=== PATIENT | female | born 1965 | race Caucasian/White ===

== ENCOUNTER 2021-03-23 07:00 | Inpatient (IN) | payer OTHER, SELFPAY ==
[2021-03-23] VITALS (10 sets, daily range): BP systolic 119–159; BP diastolic 58–93; PULSE 69–90; RESP 16–19; TEMP 36.1–37.2; O2SAT 96–100; BMI 30.1
--- NOTE | ~2021-03-23 | XR_ITS ---
EXAMINATION: XR KNEE, RIGHT CLINICAL INFORMATION: Fall, trauma COMPARISON: None TECHNIQUE: AP and crosstable lateral projections of the right knee. FINDINGS: There is a transverse fracture through the mid pole patella with distraction of the fracture fragments by approximately 3 cm. There is comminution of the lower pole fragment with vertically oriented fracture seen on the AP view and probable hairline comminution of the proximal fragment. There is spurring at the quadriceps insertion patella. The distal femur and proximal tibia are intact. There is chondrocalcinosis involving the lateral meniscus. No erosive change. XR/XR knee RT 2V IMPRESSION: Comminuted mid pole patellar fracture with distraction fracture fragments by approximately 3 cm.
--- NOTE | ~2021-03-23 | FL_ITS ---
EXAMINATION: XR FLUOROSCOPY WITH IMAGES CLINICAL INFORMATION: Patellar fracture. COMPARISON: Radiographs of the knee from 03/23/2021 at 8:07 AM TECHNIQUE: Fluoroscopy performed by Dr. House. Fluoroscopy time: 0.6 minutes DAP: 0.0609 mGycm2 Images: 2 FL/FL guidance in OR FINDINGS AND IMPRESSION: The AP and lateral views of the right knee were obtained after open reduction and internal fixation of the patella fracture. The upper and lower poles the patella are reapproximated by the partially threaded cannulated screws and figure of eight tension band wire. The patellar fragments are in anatomic position. Bones have normal alignment at the knee.
--- NOTE | 2021-03-23 07:25 | ED.FALL ---
HPI - Fall General Chief Complaint: Fall Stated Complaint: knee pain - work injury Time Seen by Provider: 03/23/21 07:25 Source: patient Mode of arrival: ambulatory Limitations: no limitations History of Present Illness HPI Narrative: 55-year-old female walked in for evaluation for work-related injury happened this morning. 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 Patient only complained of right knee pain. Patient confirm there was no dizziness or lightheadedness or loss of consciousness before or after the incident. Related Data Allergies Allergy/AdvReac Type Severity Reaction Status Date / Time No Known Allergies Allergy Verified 03/23/21 09:43 Review of Systems Review of Systems: All other systems are reviewed and are negative Constitutional: Reports as per HPI and Reports no additional constitutional complaints Eyes: Reports as per HPI and Reports no additional eye complaints Reports system reviewed and no additional complaints, except as documented Cardiovascular: Reports as per HPI and Reports no additional cardiovascular complaints Respiratory: Reports as per HPI and Reports no additional respiratory complaints Gastrointestinal: Reports as per HPI and Reports no additional gastrointestinal complaints Genitourinary: Reports no additional female genitourinary complaints Musculoskeletal: Reports no additional musculoskeletal complaints Skin/Breast: Reports system reviewed and no additional complaints, except as docu Psychiatric: Reports no additional psychiatric complaints Endocrine: Reports no additional endocrine complaints Hematologic/Lymphatic: Reports no additional hematologic/lymphatic complaints Allergic/Immunologic: Reports no additional allergic/immunologic complaints Reports system reviewed and no additional complaints, except as documented and Reports Abnormal speech present FOR[facility], [facility] Past Medical History Medical History (Updated 03/23/21 @ 07:14 by Mikal Mcguire) HTN (hypertension) Social History Social History Advance Directives: No Advance Directives Information Provided: No Physical Exam Vital Signs: Vital Signs: Last Vital Signs Temp 98 F 03/23/21 07:12 Pulse 69 03/23/21 07:12 Resp 19 03/23/21 07:12 BP 159/81 H 03/23/21 07:12 Pulse Ox 100 03/23/21 07:12 BMI result Body Mass Index 30.1 Vital signs have been reviewed as appeared to be correct. Blood pressure normal. Heart rate normal. Respiration rate normal. Temperature normal. Oxygen saturation normal. Appearance: Alert. Oriented X3. No acute distress. Head: Normal external exam. Normocephalic. Atraumatic. No Szymanski signs noted. No raccoon eyes noted Eyes: PERRLA. EOMI. Conjunctiva and sclera normal. Eyelids normal. ENT: TM's Normal. Pharynx normal. Uvula midline. Moist mucous membranes. No trismus noted. No drooling noted. No muffled voice noted. Neck: Normal inspection. Neck supple. FROM. No adenopathy. Thyroid Normal. No meningeal signs. No neck mass noted. CVS: Normal heart rate and rhythm. Heart sound normal. No murmurs noted. Pulses normal throughout. Respiratory: No respiratory distress. Painless inspiration. Breath sounds normal. No wheezes/rales/rhonchi noted. Chest nontender. No accessory muscle usage noted or decreased air movement noted. Abdomen: Soft and nontender. Bowel sounds normal in all 4 quadrants. No distention noted. No organomegaly noted. No visible injury noted. Back: No CVA tenderness. Full range of motion noted. Skin: Skin warm and dry. Normal skin color. Normal skin turgor. No rashes/lesions/lacerations noted. Extremities: Superficial abrasion to the right knee, patellar deformity and step-off., limited range of motion, unable to bear weight on the right knee or straightening the right lower extremity. Neuro: Oriented X 3. Cranial nerve exam: II-XII are grossly intact No motor deficit. No sensory deficit. Reflexes normal. Course Course Course Narrative: Assessment and plan. 55-year-old female with mechanical fall at work causing a right patellar comminuted fracture. The case discussed with orthopedic who will take the patient for surgical internal fixation. MDM - Fall Imaging Data Right knee x-ray: Attestation: I personally reviewed and interpreted this imaging study as follows: Radiologist's impression: Comminuted mid pole patellar fracture with distraction fracture fragments by approximately 3 cm.
--- NOTE | 2021-03-23 10:29 | PHA.MEDREC ---
Pharmacy Consult ? Medication Reconciliation Pharmacy has completed the medication reconciliation. Nataly Steele RPh
--- NOTE | 2021-03-23 11:17 | PC.NURSE ---
declined pain meds, states she has good pain control w immobilization, last oral intake was 0500 1 coffee w cream, or aware, pt aware npo
[2021-03-23] MEDS: Dextrose 5 % and 0.45 % NaCl 1,000 ML 80 ML IVCONT ×2 (11:34→20:39)
[2021-03-23 12:14] LABS: Glucose, Whole Blood 115 mg/dL (60-115)
--- NOTE | 2021-03-23 12:14 | PC.NURSE ---
patient reported feeling dizzy as if she was gonna pass out . obtained vitals and blood glucose . Blood glucose level 115 . Vitals bp 99/54
[2021-03-23 12:40] LABS: COVID-19 Test Negative (Negative)
--- NOTE | 2021-03-23 13:59 | PM.CNOR ---
History of Present Illness HPI Consult date: 03/23/21 <Lisa Tripp PA-C - Last Filed: 03/23/21 14:03> Chief complaint: right patella fx <Lisa Tripp PA-C - Last Filed: 03/23/21 14:03> Narrative: Patient presents the emergency department this morning after sustaining a slip and fall on black ice while at work. 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 She sustained some superficial skin abrasions. She had difficulty with ambulation and pain therefore she was brought to the emergency department. X-rays obtained revealed a right patellar fracture. Orthopedics was then consulted for further evaluation and treatment. She was admitted to the hospital with the orthopedic service. <Lisa Tripp PA-C - Last Filed: 03/23/21 14:03> Review of Systems Review of Systems: Yes all other systems are reviewed and are negative <Lisa Tripp PA-C - Last Filed: 03/23/21 14:03> [facility] Past Medical History Medical History: Medical History (Updated 03/23/21 @ 09:48 by Crissy Jordan) HTN (hypertension) <Lisa Tripp PA-C - Last Filed: 03/23/21 14:03> Social History Social History: Social History Patient Tobacco Use Status: Former Tobacco user Use of substances other than those prescribed or required for medical reasons: No Have you been hit, kicked, punched, or otherwise hurt by someone within the past year? If so, by whom?: No Are you DNR?: No Advance Directives: No Advance Directives Information Provided: No Recently lost weight without trying: No Nutrition Risks: No Nutritional Risk <ROBBY West Last Filed: 03/23/21 14:03> Meds Allergies/Adverse reactions: Allergies Allergy/AdvReac Type Severity Reaction Status Date / Time No Known Allergies Allergy Verified 03/23/21 09:43 <Lisa Tripp PA-C - Last Filed: 03/23/21 14:03> Active Medications: Current Medications Acetaminophen (Acetaminophen 325 Mg Tablet) 650 mg PO Q6H PRN PRN Reason: Pain, Mild (Pain Scale 1-3) Celecoxib (Celecoxib 200 Mg Capsule) 200 mg PO BID [facility] Docusate Sodium (Docusate Sodium 100 Mg Capsule) 100 mg PO BID [facility] Hydromorphone HCl (Hydromorphone Hcl 0.5 Mg/0.5 Ml Syringe) 0.25 mg IVPUSH Q4H PRN; Protocol PRN Reason: Pain, Severe (Pain Scale 7-10) Dextrose/Sodium Chloride (D51/2ns) 1,000 mls @ 80 mls/hr IVCONT .[id number] [facility] Last Admin: 03/23/21 11:34 Dose: 80 mls/hr Documented by: Ondansetron HCl (Ondansetron Hcl 4 Mg/2 Ml Vial) 4 mg IVPUSH Q8H PRN PRN Reason: Nausea and Vomiting Oxycodone HCl (Oxycodone Hcl Immed Release 5 Mg Tablet) 5 mg PO Q4H PRN PRN Reason: Pain, Moderate (Pain Scale 4-6 Oxycodone HCl (Oxycodone Hcl Er 10 Mg Tab.Er.12h) 10 mg PO BID [facility] Sodium Chloride (0.9 % Sodium Chloride Flush 3 Ml Syringe) 3 ml IVFLUSH QSHIFT [facility] <Lisa Tripp PA-C - Last Filed: 03/23/21 14:03> Home medications: Home Medications Medication Instructions Recorded Confirmed Last Taken Type lisinopril 10 mg tablet 1 tab PO DAILY 03/23/21 03/23/21 03/22/21 History <Lisa Tripp PA-C - Last Filed: 03/23/21 14:03> Physical Exam Vital Signs: Vital Signs: Last Vital Signs Temp 98 F 03/23/21 12:47 Pulse 79 03/23/21 12:47 Resp 18 03/23/21 12:47 BP 141/93 H 03/23/21 12:47 Pulse Ox 98 03/23/21 12:47 BMI result Body Mass Index 30.1 <Lisa Tripp PA-C - Last Filed: 03/23/21 14:03> Const: General: cooperative, healthy appearing and no acute distress <Lisa Tripp PA-C - Last Filed: 03/23/21 14:03> Resp: Effort & Inspection: normal respiratory effort and able to speak in complete sentences <Lisa Tripp PA-C - Last Filed: 03/23/21 14:03> Cardio: Rate: regular rate <Lisa Tripp PA-C - Last Filed: 03/23/21 14:03> Peripheral pulses: Peripheral pulses 2+ throughout <Lisa Tripp PA-C - Last Filed: 03/23/21 14:03> GI: Palpation (GI): Soft to palpation <Lisa Tripp PA-C - Last Filed: 03/23/21 14:03> Skin: Lesions: no lesions <Lisa Tripp PA-C - Last Filed: 03/23/21 14:03> Rashes: no rashes <Lisa Tripp PA-C - Last Filed: 03/23/21 14:03> Extrem: Other: Right knee superficial skin abrasions. Palpable defect over the patella. Patient unable to demonstrate straight leg raise. Sensation intact. Pedal pulse intact. <Lisa TroncosoburtROBBY - Last Filed: 03/23/21 14:03> Results Labs Labs: All other labs normal. <Lisa TroncosoburtROBBY - Last Filed: 03/23/21 14:03> Assessment and Plan (1) Patellar fracture: Status: Acute <Lisa Hallbisi ROBBY - Last Filed: 03/23/21 14:03> I discussed the case with Dr. House and explained the extent of the injury to the patient and options available which include surgical intervention. I explained the procedure in detail along with the length of recovery and rehab course. I explained the risk, benefits and alternatives. Risk including, but not limited to infection, blood clots, bleeding, non union or malunion and nerve/tissue damage to surrounding areas. I answered all their questions and with their understanding they have consented to move forward with Operative Fixation of the right patella. Patient will remain NPO and is scheduled for surgical procedure later today. <Lisa Tripp PA-C - Last Filed: 03/23/21 14:03> Procedures Date of Service Date of Service: 03/23/21 <Lisa Tripp PA-C - Last Filed: 03/23/21 14:03>
--- NOTE | 2021-03-23 14:46 | MHC.SHP ---
Pre-Procedural Eval Section A Date of Service: 03/23/21 The patient is an INPATIENT: Yes Changes since office visit: Yes Patient answered all questions; No Cold of Flu in the past 2 weeks, No New Medical Problems and No Changes in Medication The History & Physical has been completed within 30 days and I have reviewed it.: Yes Section B Chief Complaint: right patella fx Allergies: Allergies Allergy/AdvReac Type Severity Reaction Status Date / Time No Known Allergies Allergy Verified 03/23/21 09:43 Plan I have reviewed the history and physical and performed a pertinent physical examination on my patient. No changes have occurred unless specified.
--- NOTE | 2021-03-23 15:07 | HO.ANESPROP2 ---
[facility] Active Problems Active Problems: All Active Problems (Updated 03/23/21 @ 09:48 by Crissy Jordan) Patellar fracture (Acute) Past Medical History Medical History HTN (hypertension) Family History Family history of problems with anesthesia: No Surgical History History of Problems with Anesthesia: No Social History Social History Patient Tobacco Use Status: Former Tobacco user Meds Allergies Allergy/AdvReac Type Severity Reaction Status Date / Time No Known Allergies Allergy Verified 03/23/21 09:43 Active Medications: Current Medications Acetaminophen (Acetaminophen 325 Mg Tablet) 650 mg PO Q6H PRN PRN Reason: Pain, Mild (Pain Scale 1-3) Celecoxib (Celecoxib 200 Mg Capsule) 200 mg PO BID [facility] Docusate Sodium (Docusate Sodium 100 Mg Capsule) 100 mg PO BID [facility] Hydromorphone HCl (Hydromorphone Hcl 0.5 Mg/0.5 Ml Syringe) 0.25 mg IVPUSH Q4H PRN; Protocol PRN Reason: Pain, Severe (Pain Scale 7-10) Dextrose/Sodium Chloride (D51/2ns) 1,000 mls @ 80 mls/hr IVCONT .[id number] [facility] Last Admin: 03/23/21 11:34 Dose: 80 mls/hr Documented by: Ondansetron HCl (Ondansetron Hcl 4 Mg/2 Ml Vial) 4 mg IVPUSH Q8H PRN PRN Reason: Nausea and Vomiting Oxycodone HCl (Oxycodone Hcl Immed Release 5 Mg Tablet) 5 mg PO Q4H PRN PRN Reason: Pain, Moderate (Pain Scale 4-6 Oxycodone HCl (Oxycodone Hcl Er 10 Mg Tab.Er.12h) 10 mg PO BID [facility] Sodium Chloride (0.9 % Sodium Chloride Flush 3 Ml Syringe) 3 ml IVFLUSH QSHIFT [facility] Home Medications Medication Instructions Recorded Confirmed Last Taken Type lisinopril 10 mg tablet 1 tab PO DAILY 03/23/21 03/23/21 03/22/21 History Exam Exam Date and Time: March 23, 2021 1507 Height,Weight and Vital Signs: Height 5 ft 10 in Weight 210 lb Last Vital Signs Temp 98 F 03/23/21 12:47 Pulse 79 03/23/21 12:47 Resp 18 03/23/21 12:47 BP 141/93 H 03/23/21 12:47 Pulse Ox 98 03/23/21 12:47 Pertinent Lab Results Pertinent Lab Results: Laboratory Tests 03/23/21 03/23/21 03/23/21 10:46 12:09 12:18 POC Glucose 115 COVID-19 ([facility]) Negative COVID-19 Clin Com See Note Blood Type A Positive Antibody Screen NEGATIVE Airway Mallampati Class: II TM Dist: >3cm Loose/Missing/Broken Teeth: Yes Heart: RBBB Assessment and Plan Assessment Anesthesia Assessment: Anesthesia Plan Discussed and Chart Reviewed Final Anesthetic Review Family History of Problems with Anesthesia: No History of Problems with Anesthesia: No NPO: Yes ASA Class: II Final Preanesthetic Review: No Changes in Pt Med Stat, Meds/Allgs Chart Reviewed, Consent Obtained/Reviewed and Anes Risks/Benef Reviewed Patient Risk: Low Procedure Risk: Low Anesthetic Plan Anesthetic Plan: GA and Regional Block Disposition: Standard PACU
--- NOTE | 2021-03-23 15:58 | P.BOP_ITS ---
Brief Operative Note Date of Service: 03/23/21 Pre-op diagnosis: right patella fracture Post-op diagnosis: same Procedure: ORIF right patella fracture Implants: Farnsworth 4.0 partially threaded cannulated screws x 2 and 18 g cerclage wire Surgeon: Anthony House MD Anesthesia: GETA and regional Was an Electron Beam Operator used for this Procedure?: Yes Electron Beam Operator: Lisa Tripp Estimated blood loss (mL): 100 Tourniquet time (min): 49 IV fluids (mL): 900 Pathology: none sent Condition: stable Disposition: PACU
--- NOTE | 2021-03-23 16:01 | W.PM.OPN ---
Operative Note Operative Note Date of Service: 03/23/21 Narrative: Date of Service: 03/23/21 Pre-op diagnosis: right patella fracture Post-op diagnosis: same Procedure: ORIF right patella fracture Implants: Bahman 4.0 partially threaded cannulated screws x 2 and 18 g cerclage wire Surgeon: Anthony House MD Anesthesia: GETA and regional Was an Oversize Load Pilot Escort used for this Procedure?: Yes Oversize Load Pilot Escort: Lisa Tripp Estimated blood loss (mL): 100 Tourniquet time (min): 49 IV fluids (mL): 900 Pathology: none sent Condition: stable Disposition: PACU
--- NOTE | 2021-03-23 16:34 | P.CONIM_ITS ---
History of Present Illness Data of Consult Service Date: 03/23/21 Requesting physician: Lisa Tripp Primary Care Provider: MD RORO Rodrigues Reason for consult: routine medical management This is a 55 year old female who presented to the emergency department after a fall. She reports that she slipped on ice falling onto her right knee. she had sudden onset of pain in her right knee. She was brought to the emergency department for evaluation and her workup was significant for a right patellar fracture chest x-ray showed comminuted mid pole patellar fracture with distraction fracture fragments by approximately 3 cm. She was admitted to the orthopedic service and underwent repair earlier today. She was evaluated in the PACU. She was somewhat groggy but able to answer all questions appropriately. Review of Systems Verdana 4l Review of Systems: Yes all other systems are reviewed and Verdana 4d are negative Verdana 4l Constitutional: Verdana 4d Constitutional: Verdana 4d Verdana 4d Denies chills and Denies fever(s) Verdana 4l Cardiovascular: Verdana 4d Cardiovascular: Verdana 4d Verdana 4d Denies chest pain Verdana 4l Respiratory: Verdana 4d Verdana 4d Respiratory: Verdana 4d Denies cough Verdana 4l Gastrointestinal: Verdana 4d Gastrointestinal: Verdana 4d Verdana 4d Denies abdominal pain [facility] Medical History HTN (hypertension) Functional capacity: independent ambulation Family History (Updated 03/23/21 @ 16:38 by VENESSA Minor) Mother Diabetes Social History (Updated 03/23/21 @ 16:38 by VENESSA Minor) Alcohol intake: never Patient Tobacco Use Status: Former Tobacco user Use of substances other than those prescribed or required for medical reasons: No Meds Allergies Allergy/AdvReac Type Severity Reaction Status Date / Time No Known Allergies Allergy Verified 03/23/21 09:43 Active Medications: Current Medications Acetaminophen (Acetaminophen 325 Mg Tablet) 650 mg PO Q6H PRN PRN Reason: Pain, Mild (Pain Scale 1-3) Celecoxib (Celecoxib 200 Mg Capsule) 200 mg PO BID [facility] Docusate Sodium (Docusate Sodium 100 Mg Capsule) 100 mg PO BID [facility] Hydromorphone HCl (Hydromorphone Hcl 0.5 Mg/0.5 Ml Syringe) 0.25 mg IVPUSH Q4H PRN; Protocol PRN Reason: Pain, Severe (Pain Scale 7-10) Hydromorphone HCl (Hydromorphone Hcl 0.5 Mg/0.5 Ml Syringe) 0.25 mg IVPUSH Q5M PRN; Protocol PRN Reason: Pain, Severe (Pain Scale 7-10) Dextrose/Sodium Chloride (D51/2ns) 1,000 mls @ 80 mls/hr IVCONT .[id number] [facility] Last Admin: 03/23/21 11:34 Dose: 80 mls/hr Documented by: Promethazine HCl 12.5 mg/ (Sodium Chloride) 50.5 mls @ 202 mls/hr IV ONCE PRN PRN Reason: Nausea and Vomiting Ondansetron HCl (Ondansetron Hcl 4 Mg/2 Ml Vial) 4 mg IVPUSH Q8H PRN PRN Reason: Nausea and Vomiting Ondansetron HCl (Ondansetron Hcl 4 Mg/2 Ml Vial) 4 mg IVPUSH ONCE PRN PRN Reason: Nausea and Vomiting Oxycodone HCl (Oxycodone Hcl Immed Release 5 Mg Tablet) 5 mg PO Q4H PRN PRN Reason: Pain, Moderate (Pain Scale 4-6 Oxycodone HCl (Oxycodone Hcl Er 10 Mg Tab.Er.12h) 10 mg PO BID [facility] Oxycodone HCl (Oxycodone Hcl Immed Release 5 Mg Tablet) 5 mg PO ONCE PRN PRN Reason: Pain, Severe (Pain Scale 7-10) Sodium Chloride (0.9 % Sodium Chloride Flush 3 Ml Syringe) 3 ml IVFLUSH QSHIFT [facility] Home Medications Medication Instructions Recorded Confirmed Last Taken Type lisinopril 10 mg 1 tab PO DAILY 03/23/21 03/23/21 03/22/21 History tablet Physical Exam Verdana 4l Vital Signs and Narrative: Verdana 4d Verdana 4d Vital Signs: Verdana 4d Verdana 4Bd Last Vital Signs Verdana 4d Director Acute New 4d Director Acute New 4d Temp 99.0 F 03/23/21 16:25 Katie New 4d Pulse 84 03/23/21 16:25 Katie MosquedaNew 4d Resp 16 03/23/21 16:25 BP 119/58 L 03/23/21 16:25 Pulse Ox 98 03/23/21 16:25 BMI result Body Mass Index 30.1 Const: General: cooperative and comfortable Nutritional Appearance: overweight Orientation/consciousness: patient oriented x3 HENMT: Head: Yes normocephalic and Yes atraumatic Eyes: Sclerae: sclerae normal Resp: Effort & Inspection: normal respiratory effort and no respiratory distress Cardio: Rate: regular rate Rhythm: regular rhythm GI: Palpation (GI): Soft to palpation and nontender Neuro: General: patient oriented x3 Cranial nerves: Yes CN's II-XII intact bilaterally and Yes Bilaterally intact EOM present Extrem: Other: RLE in knee immobilizer Results Labs Labs: Laboratory Results - last 24 hr 03/23/21 03/23/21 03/23/21 10:46 12:09 12:18 POC Glucose 115 COVID-19 ([facility]) Negative COVID-19 Clin Com See Note Blood Type A Positive Antibody Screen NEGATIVE Imaging Radiologist's Impressions: Impressions Knee X-Ray 03/23/21 08:08 IMPRESSION: Comminuted mid pole patellar fracture with distraction fracture fragments by approximately 3 cm. Assessment and Plan (1) Patellar fracture: Status: Acute This is a 55-year-old female with history of hypertension who presents to the emergency department after mechanical fall found to have right patellar fracture admitted to the orthopedic service Right patellar fracture s/p ORIF management per orthopedic service recommend checking baseline labs HTN. BP controlled Continue home dose of lisinopril there are no other acute medical issues at this time. will sign off at this time. please feel free to call us if any acute issues arise. dvt ppx - per primary team attending: dr guido
[2021-03-23] MEDS: ondansetron HCL 4 MG/2 ML VIAL IVPUSH (17:23)
[2021-03-23 17:29] LABS: MANUAL DIFF FLAG NO
[2021-03-23 17:30] LABS: Basophils Percent Auto 0.2 % (0-2); Hemoglobin 12.2 g/dl (12.0-16.0); Imm Gran Abs Auto 0.06 X10*3/uL (0.00-0.03); Imm Gran Pct Auto 0.6 % (0.0-0.4); Lymphocytes Percent Auto 9.3 % (20-40); Mean Corpuscular HGB Conc 33.9 g/dl (31.0-35.0); Mean Corpuscular Hemoglobin 29.3 pg (27.0-33.0); Mean Corpuscular Volume 86.3 fL (80.0-98.0); Mean Platelet Volume 8.6 fL (9.4-12.3); Monocytes Absolute Auto 0.3 X10*3/uL (0.1-1.2); Monocytes Percent Auto 2.5 % (2-11); Neutrophils Absolute Auto 9.5 x10*3/uL (2.0-8.3); Neutrophils Percent Auto 87.4 % (45-73); Platelet Count 287 X10*3/uL (160-400); Red Blood Count 4.17 X10*6/uL (4.20-5.50); Red Cell Distribution Width 12.4 % (11.0-16.0); White Blood Count 10.9 X10*3/uL (4.8-10.8)
[2021-03-23 17:45] LABS: Anion Gap 13 (12-20); Blood Urea Nitrogen 17 mg/dL (9-16); Calcium 9.2 mg/dL (8.4-10.2); Carbon Dioxide 24 mmol/L (22-29); Chloride 105 mmol/L (96-108); Creatinine Clr Calc Pharmacy 99.4; Estimated Glomerular Filt Rate > 60; Glucose Random 178 mg/dL (60-115); Potassium 4.2 mmol/L (3.3-5.1); Sodium 138 mmol/L (135-145)
[2021-03-23] MEDS: Docusate Sodium 100 MG CAPSULE PO (20:26)
[2021-03-23] MEDS: Celecoxib 200 MG CAPSULE PO (20:26)
[2021-03-23] MEDS: oxyCODONE HCl ER 10 MG TAB.ER.12H PO (20:26)
[2021-03-23] MEDS: 0.9 % Sodium Chloride Flush 3 ML SYRINGE IVFLUSH (20:27)
[2021-03-23] MEDS: ceFAZolin Sodium/Dextrose,Iso 2 GM/50 ML PIGGYBACK IV (20:40)
[2021-03-24] VITALS: BP 124/57; PULSE 72; RESP 18; TEMP 36.3; O2SAT 96
[2021-03-24 03:49] VITALS: BP 132/67; PULSE 73; RESP 16; TEMP 36.6; O2SAT 98
[2021-03-24 05:52] LABS: MANUAL DIFF FLAG NO
[2021-03-24 05:57] LABS: Basophils Percent Auto 0.1 % (0-2); Hematocrit 32.4 % (37.0-47.0); Hemoglobin 10.9 g/dl (12.0-16.0); Imm Gran Abs Auto 0.03 X10*3/uL (0.00-0.03); Imm Gran Pct Auto 0.3 % (0.0-0.4); Lymphocytes Absolute Auto 1.4 X10*3/uL (1.2-4.9); Lymphocytes Percent Auto 14.9 % (20-40); Mean Corpuscular HGB Conc 33.6 g/dl (31.0-35.0); Mean Corpuscular Hemoglobin 29.5 pg (27.0-33.0); Mean Corpuscular Volume 87.8 fL (80.0-98.0); Mean Platelet Volume 8.7 fL (9.4-12.3); Monocytes Absolute Auto 0.7 X10*3/uL (0.1-1.2); Monocytes Percent Auto 7.7 % (2-11); Neutrophils Absolute Auto 7.2 x10*3/uL (2.0-8.3); Platelet Count 240 X10*3/uL (160-400); Red Blood Count 3.69 X10*6/uL (4.20-5.50); Red Cell Distribution Width 12.3 % (11.0-16.0); White Blood Count 9.4 X10*3/uL (4.8-10.8)
[2021-03-24 06:22] LABS: Anion Gap 10 (12-20); Blood Urea Nitrogen 17 mg/dL (9-16); Calcium 9.2 mg/dL (8.4-10.2); Carbon Dioxide 26 mmol/L (22-29); Chloride 105 mmol/L (96-108); Creatinine Clr Calc Pharmacy 110.6; Estimated Glomerular Filt Rate > 60; Glucose Fasting 167 mg/dL (60-99); Potassium 4.1 mmol/L (3.3-5.1); Sodium 137 mmol/L (135-145)
[2021-03-24 07:09] VITALS: BP 128/62; PULSE 74; RESP 18; TEMP 36.5; O2SAT 98
[2021-03-24 09:56] VITALS: BP 128/62; PULSE 74
[2021-03-24] MEDS: lisinopriL 10 MG TABLET PO (09:56)
[2021-03-24] MEDS: Docusate Sodium 100 MG CAPSULE PO (09:56)
[2021-03-24] MEDS: Celecoxib 200 MG CAPSULE PO (09:56)
[2021-03-24] MEDS: 0.9 % Sodium Chloride Flush 3 ML SYRINGE IVFLUSH (09:57)
--- NOTE | 2021-03-24 11:53 | MHC.CM.PN ---
PATIENT IS DISCHARGED HOME PRIOR TO CM ASSESSMENT OR SECURING A [facility] SERVICE. REFERRAL PLACED TO [facility] IN HOPES OF SECURING HOME P.T. SERVICES. PATIENT IS NOW AWARE OF ATTEMPTS. CASE MANAGEMENT TO FOLLOW UP WITH NOTE
[2021-03-24 11:55] VITALS: BP 127/68; PULSE 87; RESP 18; TEMP 36.8; O2SAT 99
--- NOTE | 2021-03-24 12:43 | P.DS_ITS ---
DS: Providers Provider Date of Service: 03/24/21 Date of admission: 03/23/21 09:48 Primary care physician: Kasey Bennett MD Consults: 03/23/21 09:47 Consult to Hospitalist Routine Consulting Provider: Hospitalist Reason For Exam: routine medical management DS: Diagnosis Discharge Diagnosis (1) Patellar fracture: Status: Acute DS: Summary Hospital Course Hospital Course: The patient underwent a successful ORIF of the right patella, she was transferred to PACU and then to the floor to recover. During their stay, their vitals were stable, afebrile at 98.2. Labs were unremarkable, H/H 10.9/32.4 . POD 1 she was started on ASA for DVT ppx, she also received PT/OT services twice a da. Prior to discharge, dressing was clean dry and intact, and the plan was to be discharged home with vna svs Time Spent with Patient Time attestation: Total time spent providing and/or coordinating discharge services: Discharge coordination time: Less than 30 minutes Quality: Stroke Does the patient have a stroke diagnosis?: No Physical Exam Vital Signs: Vital Signs: Last Vital Signs Temp 98.2 F 03/24/21 11:55 Pulse 87 03/24/21 11:55 Resp 18 03/24/21 11:55 BP 127/68 03/24/21 11:55 Pulse Ox 99 03/24/21 11:55 BMI result Body Mass Index 30.1 Const: General: cooperative, healthy appearing and no acute distress Resp: Effort & Inspection: normal respiratory effort and able to speak in complete sentences Cardio: Rate: regular rate Peripheral pulses: Peripheral pulses 2+ throughout GI: Palpation (GI): Soft to palpation Skin: General skin exam: no rashes or lesions noted Extrem: Other: incision clean dry and intact. Douglas intact. No erythema or joint effusion. Calf supple nontender. Neurovascularly intact. DS: Data Data Completed and Pending Labs on day of discharge: Laboratory Results - last 24 hr 03/23/21 03/23/21 03/24/21 17:24 17:24 05:39 WBC 10.9 H 9.4 RBC 4.17 L 3.69 L Hgb 12.2 10.9 L Hct 36.0 L 32.4 L MCV 86.3 87.8 MCH 29.3 29.5 MCHC 33.9 33.6 RDW 12.4 12.3 Plt Count 287 240 MPV 8.6 L 8.7 L Immature Gran % (Auto) 0.6 H 0.3 Neut % (Auto) 87.4 H 77.0 H Lymph % (Auto) 9.3 L 14.9 L [place] % (Auto) 2.5 7.7 Eos % (Auto) 0.0 0.0 Baso % (Auto) 0.2 0.1 Lymph # (Auto) 1.0 L 1.4 [place] # (Auto) 0.3 0.7 Eos # (Auto) 0.0 0.0 Baso # (Auto) 0.0 0.0 Abs Immat Gran (auto) 0.06 H 0.03 Absolute Neuts (auto) 9.5 H 7.2 Absolute Nucleated RBC 0.000 0.000 Nucleated RBC % (auto) 0.0 0.0 Sodium 138 Potassium 4.2 Chloride 105 Carbon Dioxide 24 Anion Gap 13 BUN 17 H Creatinine 0.79 Estim Creat Clear Calc 99.4 Estimated GFR > 60 Random Glucose 178 H Fasting Glucose Calcium 9.2 03/24/21 05:39 WBC RBC Hgb Hct MCV MCH MCHC RDW Plt Count MPV Immature Gran % (Auto) Neut % (Auto) Lymph % (Auto) [place] % (Auto) Eos % (Auto) Baso % (Auto) Lymph # (Auto) [place] # (Auto) Eos # (Auto) Baso # (Auto) Abs Immat Gran (auto) Absolute Neuts (auto) Absolute Nucleated RBC Nucleated RBC % (auto) Sodium 137 Potassium 4.1 Chloride 105 Carbon Dioxide 26 Anion Gap 10 L BUN 17 H Creatinine 0.71 Estim Creat Clear Calc 110.6 Estimated GFR > 60 Random Glucose Fasting Glucose 167 H Calcium 9.2 Discharge Plan Discharge Patient Disposition: Home Health Service Discharge Diagnosis: s/p ORIF right patella Referrals: [facility] [Outside] - 1 Week ([facility]ERAPY SERVICES ON Saturday03/26/2021. ) Jordan Hodge PA-C [Physician Senior Talent Acquisition Specialist] - 2 Weeks Discharge Medications: New docusate sodium 100 mg Capsule 100 mg PO BID 14 Days Qty: 28 RF: 0 acetaminophen 325 mg Tablet 650 mg PO Q6H PRN (Reason: Pain, Mild (Pain Scale 1-3)) 30 Days Qty: 240 RF: 0 oxycodone 5 mg Tablet 5 mg PO Q4H PRN (Reason: Pain, Moderate (Pain Scale 4-6) 7 Days Qty: 42 RF: 0 aspirin 325 mg capsule 325 mg PO BID 42 Days Qty: 84 RF: 0 (DME) walker Misc See Rx Instructions .ROUTE .MEDSUPPLY Qty: 1 RF: 0 Continued lisinopril 10 mg tablet 1 tab PO DAILY RF: 0 Discharge Orders: Discharge Order (Routine); Ordered 03/24/21 Ordered By: Jordan Hodge Diet: regular diet Activity on Discharge: Use cane or walker Stand Alone Forms: Patient Portal Discharge page Care Plan Goals: Restore function of joint Health Concerns: none Plan of Treatment: Physical Therapy Pain management DVT prophylaxis Assessment: * WBAT with brace * sleep with brace locked in extension * Keep dressing clean, dry and intact * Perform Ankle pumps for leg circulation 4x a day * Elevate leg above the level of the heart on 3 pillows * Any questions or concerns please call the office [place] * Follow up with Orthopedics in 2 weeks. Discharge Date/Time: 03/24/21 12:50
--- NOTE | 2021-03-24 12:43 | P.F2F_ITS ---
Service Date Service Date: 03/24/21 Encounter Date of encounter: 03/24/21 Reasons for Services Reason for physical therapy: home safety and mobility, therapeutic exercises, restore joint function, gait/transfer training, ADL training and energy conservation Reason for occupational therapy: home safety and mobility, therapeutic exercises, restore joint function, gait/transfer training, ADL training and energy conservation MD Overseeing Care: Anthony House Homebound: Leaving the home is medically contraindicated at this time without the asist of a device and/or another person due th the listed conditions above and below. Reason homebound: unsteady gait / fall risk, leg weakness, pain with ambulation, poor balance / fall risk and unable to drive Homebound supporting statement: Pt. is considered home bound due to recent surgery. Unable to drive, poor balance, poor gait mechanics. Certification: Based on the above findings, I certify that this patient is confined to the home and needs intermittent nursing home care, physical therapy and/or speech therapy, or continues to need occupational therapy. The patient is under my care, and I have initiated the establishment of the plan of care. The patient will be followed by a physician who will periodically review the plan of care.
--- NOTE | 2021-03-24 12:44 | MHC.CM.PN ---
PATIENT IS RETURNED HOME WITH [facility] START OF CARE FOR HOME P.T. THIS Saturday03/26/21. RN AWARE PATIENT HAS ALREADY LEFT FOR HOME THIS ADMITTANCE ATTENDANT TO CALL AND INFORM HER.
--- NOTE | 2021-03-24 13:14 | MHC.CM.PN ---
POST DISCHARGE - CALL TO PATIENT @ [phone] PATIENT IS NOW AWARE THAT [facility] WILL START SERVICES Saturday03/26/2021
--- NOTE | 2021-03-24 13:23 | HO.POSTANES ---
Post Anesthesia Evaluation Post Anesthesia Evaluation Vital Signs: Vital Signs Temp Pulse Resp BP Pulse Ox 03/24/21 11:55 98.2 F 87 18 127/68 99 03/24/21 09:56 74 128/62 03/24/21 07:09 97.7 F 74 18 128/62 98 03/24/21 03:49 97.8 F 73 16 132/67 98 Anesthesia: General LMA Mental Status: Awake Pain Control: Satisfactory Nausea/Vomiting: None Hydration: Adequate Anesthesia-Related Issues: No Anes. Related Issues
--- NOTE | 2021-03-28 10:32 | W.PM.OPN ---
Operative Note Operative Note Date of Service: 03/23/21 Narrative: Pre-op diagnosis: right patella fracture Post-op diagnosis: same Procedure: ORIF right patella fracture Implants: Bahman 4.0 partially threaded cannulated screws x 2 and 18 g cerclage wire Surgeon: Anthony House MD Anesthesia: GETA and regional Was an Newspaper Delivery Counselor used for this Procedure?: Yes Newspaper Delivery Counselor: Lisa Tripp Estimated blood loss (mL): 100 Tourniquet time (min): 49 IV fluids (mL): 900 Pathology: none sent Condition: stable Disposition: PACU The patient was brought to the operating room and placed supine on the surgical table. She was prepped and draped in standard sterile fashion and a time out was called to identify proper site, proper procedure and IV antibiotics per weight were administered. I began by making a midline incision over the patella. There was superficial road rash over the patellar tendon. This was avoided with the incision. I dissected down to the retinaculum and removed the clot and debris. There was a comminuted patella fracture with articular involvement. I cleaned out the fracture edges with combination of irrigation and a curette and a rongeur. I then used a tenaculum to reduce the fracture and biplanar fluoroscopy to confirm reduction. I then placed 2 k wires in parallell from distal to proximal through the patella. Once I was satisfied with the reduction and the position of the k-wires I overdrilled and then placed 2 partially threaded 4.0 cannulated screws across the fracture. I then made a christopher incision in the patellar and quad tendon, in line with the fibers, and passed an 18 G cerclage wire through the cannulated screws and tied this to itself in a figure of eight position. I had excellent compression of the fracture and could bend the knee to 90 deg without tension on the construct. I buried the wire as much as possible and then irrigated copiusly and closed with absorbable suture and jose david. She was placed in a hinged knee brace and sterile dressings. She was brought to the recovery room in stable condition. There were no known complications.
== END 2021-03-24 12:50 | disposition home health service (06) | DRG 517 ==
LOC: HO.ED 09:48 → HO.EDOVER 10:21 → HO.S3 12:47
PROVIDERS: Physician Assistant; Physician Assistant Medical; Admitting Provider Orthopaedic Surgery; Emergency Provider Emergency Medicine; PCP Internal Medicine; Visit Provider Orthopaedic Surgery
PROC: 0QSD04Z Reposition Right Patella with Internal Fixation Device, Open Approach (ICD-10-PCS; CPT 27524; principal; 2021-03-23 14:30)
DX: S82.031A Displaced transverse fracture of right patella, initial encounter for closed fracture (principal); W00.0XXA Fall on same level due to ice and snow, initial encounter; I10 Essential (primary) hypertension; Y93.H3 Activity, building and construction; Y92.89 Other specified places as the place of occurrence of the external cause; Y99.0 Civilian activity done for income or pay; Z20.822 Contact with and (suspected) exposure to COVID-19; Z79.82 Long term (current) use of aspirin; Z79.899 Other long term (current) drug therapy
CPT/HCPCS: 36415; 73560; 80048; 82947; 85025; 86850; 86900; 86901; 87635; 97161; 99283; 99285; C1713; J0690; J1170; J2250; J2405

== ENCOUNTER 2021-04-06 08:56 | Outpatient (REF) | payer OTHER, SELFPAY ==
--- NOTE | ~2021-04-06 | XR_ITS ---
EXAMINATION: Knee x-ray CLINICAL INFORMATION: Pain COMPARISON: Previous right x-ray March 2021 TECHNIQUE: AP bilateral standing view of the knees and lateral view of the right knee was obtained. FINDINGS: There are 2 new screws and cerclage wires transfixing the patella fracture with improved alignment. No other fracture is seen. The joint spaces are normal. There is a joint effusion. There are skin jose david over the anterior knee. Standing AP view of the left knee is unremarkable.. XR/XR knee RT 1V IMPRESSION: ORIF of the right patellar fracture with improved alignment.
--- NOTE | ~2021-04-06 | XR_ITS ---
EXAMINATION: Knee x-ray CLINICAL INFORMATION: Pain COMPARISON: Previous right x-ray March 2021 TECHNIQUE: AP bilateral standing view of the knees and lateral view of the right knee was obtained. FINDINGS: There are 2 new screws and cerclage wires transfixing the patella fracture with improved alignment. No other fracture is seen. The joint spaces are normal. There is a joint effusion. There are skin jose david over the anterior knee. Standing AP view of the left knee is unremarkable.. XR/XR knee standing BI IMPRESSION: ORIF of the right patellar fracture with improved alignment.
== END 2021-04-06 08:57 | disposition home or self-care (01) ==
LOC: HO.HOSX 08:56
PROVIDERS: Visit Provider Orthopaedic Surgery
DX: M25.561 Pain in right knee (principal); M25.461 Effusion, right knee; S82.001A Unspecified fracture of right patella, initial encounter for closed fracture; X58.XXXA Exposure to other specified factors, initial encounter; Y93.9 Activity, unspecified; Y92.9 Unspecified place or not applicable; Y99.8 Other external cause status; I10 Essential (primary) hypertension; Z87.891 Personal history of nicotine dependence; Z83.3 Family history of diabetes mellitus; Z98.1 Arthrodesis status
CPT/HCPCS: 73560; 73565

== ENCOUNTER 2021-05-16 07:08 | Outpatient (REF) | payer OTHER, SELFPAY ==
--- NOTE | ~2021-05-16 | XR_ITS ---
EXAMINATION: XR KNEE, RIGHT CLINICAL INFORMATION: Unspecified knee pain COMPARISON: Right knee x-rays 04/06/2021 TECHNIQUE: Two views of the right knee. FINDINGS: Stable postsurgical changes of the patella. Fracture line persists but is barely perceivable on today's x-rays. There is no significant overlying soft tissue swelling. Skin jose david have been removed. No significant degenerative changes of the right knee. Tiny suprapatellar joint effusion persists. XR/XR knee RT 2V IMPRESSION: Near complete interval healing of patellar fracture. Unremarkable hardware.
== END 2021-05-16 07:09 | disposition home or self-care (01) ==
LOC: HO.HOSX 07:08
PROVIDERS: Visit Provider Physician Assistant
DX: S82.001D Unspecified fracture of right patella, subsequent encounter for closed fracture with routine healing (principal)
CPT/HCPCS: 73560

== ENCOUNTER 2021-06-27 07:08 | Outpatient (REF) | payer OTHER, SELFPAY ==
--- NOTE | ~2021-06-27 | XR_ITS ---
EXAMINATION: XR KNEE, RIGHT CLINICAL INFORMATION: Patellar fracture. Follow up. COMPARISON: Right knee 05/16/2021. TECHNIQUE: Four views of the right knee. FINDINGS: Postsurgical changes of patella are seen with healing patellar fracture. The fracture line is hazy but still visualized. There is mild suprapatellar joint effusion. No other fracture seen. XR/XR knee RT 2V IMPRESSION: Healing patellar fracture stabilized with screws and wires. No major change from 05/16/2021.
== END 2021-06-27 07:09 | disposition home or self-care (01) ==
LOC: HO.HOSX 07:08
PROVIDERS: Visit Provider Physician Assistant
DX: M25.561 Pain in right knee (principal); S82.091D Other fracture of right patella, subsequent encounter for closed fracture with routine healing; X58.XXXD Exposure to other specified factors, subsequent encounter; I10 Essential (primary) hypertension; Z87.891 Personal history of nicotine dependence
CPT/HCPCS: 73560; 99212

== ENCOUNTER → 2021-08-08 12:42 | Outpatient (BNVA) | payer OTHER, SELFPAY | PROVIDERS: PCP Internal Medicine; Visit Provider Physician Assistant | DX: S82.001D Unspecified fracture of right patella, subsequent encounter for closed fracture with routine healing (principal) | CPT/HCPCS: 99212 ==

== ENCOUNTER 2021-09-04 10:12 | Outpatient (REF) | payer OTHER, SELFPAY ==
--- NOTE | ~2021-09-04 | XR_ITS ---
EXAMINATION: XR BILATERAL AP KNEE STANDING XR RIGHT KNEE. CLINICAL INFORMATION: Knee pain. COMPARISON: None TECHNIQUE: AP bilateral knee standing. Right knee 2 views. FINDINGS: AP bilateral knee: There is mild reduction in the medial compartment of both knees with minimal loss of lateral compartment joint space as well. Right knee There are screws and wires for an old healed patellar fracture. There is no abnormal suprapatellar joint effusion seen. There is no lytic or sclerotic process seen. Mild loss of patellofemoral joint space is seen. XR/XR knee RT 2V IMPRESSION: 1. Mild degenerative changes of the tricompartments of right knee. There is an old healed patellar fracture with screws and wires in place. No acute fractures seen involving the right knee. No abnormal joint effusion either. 2. Mild degenerative changes medial and lateral compartment left knee.
--- NOTE | ~2021-09-04 | XR_ITS ---
EXAMINATION: XR BILATERAL AP KNEE STANDING XR RIGHT KNEE. CLINICAL INFORMATION: Knee pain. COMPARISON: None TECHNIQUE: AP bilateral knee standing. Right knee 2 views. FINDINGS: AP bilateral knee: There is mild reduction in the medial compartment of both knees with minimal loss of lateral compartment joint space as well. Right knee There are screws and wires for an old healed patellar fracture. There is no abnormal suprapatellar joint effusion seen. There is no lytic or sclerotic process seen. Mild loss of patellofemoral joint space is seen. XR/XR knee standing BI IMPRESSION: 1. Mild degenerative changes of the tricompartments of right knee. There is an old healed patellar fracture with screws and wires in place. No acute fractures seen involving the right knee. No abnormal joint effusion either. 2. Mild degenerative changes medial and lateral compartment left knee.
== END 2021-09-04 10:13 | disposition home or self-care (01) ==
LOC: HO.HOSX 10:12
PROVIDERS: Visit Provider Orthopaedic Surgery
DX: M25.561 Pain in right knee (principal); Z96.9 Presence of functional implant, unspecified; Z87.81 Personal history of (healed) traumatic fracture
CPT/HCPCS: 73560; 73565; 99212

== ENCOUNTER 2021-09-13 10:46 | Day surgery (SDC) | payer OTHER, SELFPAY ==
[2021-09-07 12:59] VITALS: BMI 30.8
--- NOTE | 2021-09-12 09:01 | P.CONAN_ITS ---
Documented by User: Payal Robbins NP 09/12/21 09:01 HPI - Anesthesia Eval Consult details Narrative: 56yo F for Right Removal Knee Orthopedic Hardware s/p patella ORIF 03/2021 with GA-LMA 4 PMFSH Active Problems Active Problems: All Active Problems (Updated 09/04/21 @ 10:58 by Yared Boston) Retained orthopedic hardware (Acute) Patellar fracture (Acute) Past Medical History Medical History HTN (hypertension) Family History Family History Mother Diabetes Family history of problems with anesthesia: No Surgical History Surgical History History of open reduction and internal fixation (ORIF) procedure History of Problems with Anesthesia: No Social History Social History Household Members: Family Household Members Other:: mother Housing: House Are you a primary resident care associate to a significant other at home: Yes (mother) Do you presently have visiting nurse or other home services: No Alcohol intake: never Patient Tobacco Use Status: Former Tobacco user Quit Date: 2012 Tobacco use type: Cigarette Second Hand Smoke Exposure: No Use of substances other than those prescribed or required for medical reasons: No Have you been hit, kicked, punched, or otherwise hurt by someone within the past year? If so, by whom?: No Are you DNR?: No Advance Directives: No Advance Directives Information Provided: Yes Advance Directives on File: No Recently lost weight without trying: No Nutrition Risks: No Nutritional Risk Current occupational status: employed Current occupation: housekeeping, rt hand Meds Allergies Allergy/AdvReac Type Severity Reaction Status Date / Time No Known Allergies Allergy Verified 09/07/21 12:58 Home Medications Medication Instructions Recorded Confirmed Last Taken Type lisinopril 10 mg tablet 1 tab PO DAILY 03/23/21 09/07/21 03/22/21 History Exam Exam Date and Time: September 12, 2021 0901 Height,Weight and Vital Signs: Height 5 ft 10 in Weight 97.522 kg Assessment and Plan Assessment Anesthesia Assessment: Chart Reviewed Final Anesthetic Review Family History of Problems with Anesthesia: No History of Problems with Anesthesia: No Documented by User: Sean Dominguez MD 09/13/21 16:30 HPI - Anesthesia Eval Consult details Narrative: 56yo F for Right Removal Knee Orthopedic Hardware s/p patella ORIF 03/2021 with GA-LMA 4 RBBB , asymptomatic . was also present on rhythm strip in March last year . Patient has an upcoming appointment with PCP , where patient will discuss with PCP for possible workup . We will not delay care and proceed with the procedure as this finding was present in March last and patient tolerated anesthesia at that time without any issues. [facility] Past Medical History Medical History HTN (hypertension) Family History Family History Mother Diabetes Surgical History Surgical History History of open reduction and internal fixation (ORIF) procedure Social History Social History Household Members: Family Household Members Other:: mother Housing: House Are you a primary resident care associate to a significant other at home: Yes (mother) Do you presently have visiting nurse or other home services: No Alcohol intake: never Patient Tobacco Use Status: Former Tobacco user Quit Date: 2012 Tobacco use type: Cigarette Second Hand Smoke Exposure: No Use of substances other than those prescribed or required for medical reasons: No Have you been hit, kicked, punched, or otherwise hurt by someone within the past year? If so, by whom?: No Are you DNR?: No Advance Directives: No Advance Directives Information Provided: Yes Advance Directives on File: No Recently lost weight without trying: No Nutrition Risks: No Nutritional Risk Current occupational status: employed Current occupation: housekeeping, rt hand Meds Allergies Allergy/AdvReac Type Severity Reaction Status Date / Time No Known Allergies Allergy Verified 09/07/21 12:58 Home Medications Medication Instructions Recorded Confirmed Last Taken Type lisinopril 10 mg tablet 1 tab PO DAILY 03/23/21 09/07/21 03/22/21 History Exam Airway Mallampati Class: III TM Dist: >3cm Neck ROM: Full Loose/Missing/Broken Teeth: Yes (Poor dentition ) Heart: S1,S2 Lungs: b/l breath sounds Assessment and Plan Assessment Anesthesia Assessment: Anesthesia Plan Discussed Final Anesthetic Review NPO: Yes ASA Class: III Final Preanesthetic Review: Meds/Allgs Chart Reviewed, Consent Obtained/Reviewed and Anes Risks/Benef Reviewed Patient Risk: Intermediate Procedure Risk: Intermediate Anesthetic Plan Anesthetic Plan: GA Disposition: Standard PACU
[2021-09-13] VITALS (7 sets, daily range): BP systolic 92–183; BP diastolic 40–88; PULSE 64–84; RESP 16–18; TEMP 37–37.9; O2SAT 96–100
--- NOTE | ~2021-09-13 | FL_ITS ---
EXAMINATION: XR FLUOROSCOPY WITH IMAGES CLINICAL INFORMATION: Removal hardware, right knee COMPARISON: Radiographs right knee 09/04/2021 TECHNIQUE: Fluoroscopy performed by Dr. Anthony House. Fluoroscopy time: 2 seconds DAP: 0.0083 Gycm2 Images: 1 FINDINGS: The patellar orthopedic hardware noted on prior radiographs are no longer demonstrated. No metallic foreign body seen. There is spurring at the quadriceps insertion on the patella. FL/FL guidance in OR IMPRESSION: Fluoroscopy for orthopedic procedure.
[2021-09-13] MEDS: Lactated Ringers 1,000 ML 100 ML IVCONT (11:24)
[2021-09-13] MEDS: Acetaminophen 325 MG TABLET 650 MG PO (11:26)
--- NOTE | 2021-09-19 11:29 | P.BOP_ITS ---
Brief Operative Note Date of Service: 09/13/21 Pre-op diagnosis: Retained orthopaedic hardware right knee Post-op diagnosis: same Procedure: Removal of hardware right knee Implants: none Surgeon: Atnhony House MD Anesthesia: GETA and local Was an Financial Assistance Advisor used for this Procedure?: Yes Financial Assistance Advisor: Lisa Tripp Estimated blood loss (mL): 50 IV fluids (mL): 500 Pathology: none sent Condition: stable Disposition: PACU
--- NOTE | 2021-09-19 11:32 | P.OP_ITS ---
Operative Note Operative Note Date of Service: 09/13/21 Narrative: Date of Service: 09/13/21 Pre-op diagnosis: Retained orthopaedic hardware right knee Post-op diagnosis: same Procedure: Removal of hardware right knee Implants: none Surgeon: Anthony House MD Anesthesia: GETA and local Was an Mechanical Engineering Manager used for this Procedure?: Yes Mechanical Engineering Manager: Lisa Tripp Estimated blood loss (mL): 50 IV fluids (mL): 500 Pathology: none sent Condition: stable Disposition: PACU Patient was brought to the operating room and placed supine on the surgical table. She was prepped and draped in standard sterile fashion and a time out was called to identify proper site, proper procedure and IV antibiotics per weight were administered. I began by opening up the distal half of the prior incision. The cerclage wire was easily encountered under the skin and this was unwound and removed. I then removed the two cannulated screws using a standard screwdriver. The wound was then irrigated copiously with saline and the knee take through a ROM. Radiographs were taken to conrim all hardware had been fully removed and the wound was closed with absorbable suture and jose david. Sterile dressings were applied and she was awakened from anesthesia and brought to the recovery room in stable condition.
== END 2021-09-13 15:44 | disposition home or self-care (01) ==
LOC: HO.SSS 10:46
PROVIDERS: PCP Internal Medicine; Visit Provider Orthopaedic Surgery
PROC: (CPT 20680; principal; 2021-09-13 13:00)
DX: T84.84XA Pain due to internal orthopedic prosthetic devices, implants and grafts, initial encounter (principal); M25.561 Pain in right knee; Z45.89 Encounter for adjustment and management of other implanted devices; Y79.8 Miscellaneous orthopedic devices associated with adverse incidents, not elsewhere classified; Y83.8 Other surgical procedures as the cause of abnormal reaction of the patient, or of later complication, without mention of misadventure at the time of the procedure; I10 Essential (primary) hypertension; Z79.899 Other long term (current) drug therapy; Z87.891 Personal history of nicotine dependence
CPT/HCPCS: 20680; J0690; J1100; J1170; J2250; J2405; J2795; J3010